=== PATIENT | female | born 1995 | race American Indian/Alaskan Native ===

== ENCOUNTER 2016-10-26 23:37 | Emergency (ER) | payer SELFPAY ==
[2016-10-26 23:44] VITALS: BP 118/65
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
== END 2016-10-27 03:00 ==
LOC: ED 23:37
DX: T74.21XA Adult sexual abuse, confirmed, initial encounter (principal); F17.200 Nicotine dependence, unspecified, uncomplicated
CPT/HCPCS: 99282